=== PATIENT | male | born 1965 | race Caucasian/White ===

== ENCOUNTER 2019-05-27 17:56 | Emergency (ER) | payer BC ==
[~2019-05-27] VITALS: Ht 185.4 cm; Wt 111.1 kg
[~2019-05-27 17:56] MED LIST: AMOX500 PO; IBUHYD PO
[2019-05-27] MEDS ORDERED: ERYT1OIN RIGHTEYE (21:23)
== END 2019-05-27 21:32 | disposition home or self-care (01) ==
LOC: ER 17:56
DX: T15.11XA Foreign body in conjunctival sac, right eye, initial encounter (principal); Z87.891 Personal history of nicotine dependence
CPT/HCPCS: 90471; 90714; 99283-25; J7030